=== PATIENT | female | born 1945 | race Caucasian/White ===

== ENCOUNTER 2017-01-15 08:15 | Emergency (ER) | payer MEDICARE, BC ==
[~2017-01-15 08:15] MED LIST: ALLERCLEAR10 MG PO; ARAVA 20 MG TAB20 MG PO; ARAVA20 MG PO; CARDIZEM30 MG PO; CIMZIA400 MG/2 M INJ; CIMZIA400 MG/2 M SQ; DAILY MULTIPLE1 EAC1 PO; ECOTRIN325 MG PO; ECOTRIN81 MG PO; FOLIC ACID 1 MG1 MG PO; GLUCOPHAGE 500500 MG PO; HYDROCHLOROTHIA25 MG PO; LEXAPRO10 MG PO; LIPITOR TAB 2020 MG PO; NATURAL SENNA8.6 MG PO; NITROSTAT 0.40.4 MG SL; NORCO 10-325 T1 EACH PO; PHENERGAN 12.12.5 M1 PO; PLAVIX 75 MG TA75 MG PO; PROAIR HFA8.5 GM INH; PROTONIX40 MG PO; REQUIP5 MG PO; SYNTHROID100 MCG PO; TOPROL XL25 MG PO; VITAMIN B-1000 MCG/M IM; ZOFRAN4 MG PO
[2017-01-15 09:48] LABS: HEMOGLOBIN 12.6 gm/dl (12.3-15.3); RED BLOOD COUNT 5.52 M/UL (4.00-5.10); WHITE BLOOD COUNT 6.4 K/UL (4.5-11.0)
== END 2017-01-15 13:20 | disposition home or self-care (01) ==
LOC: ER1 08:15
PROVIDERS: Physician Assistant
DX: R11.2 Nausea with vomiting, unspecified (principal); R19.7 Diarrhea, unspecified; M48.54XA Collapsed vertebra, not elsewhere classified, thoracic region, initial encounter for fracture; I10 Essential (primary) hypertension; E11.9 Type 2 diabetes mellitus without complications; Z86.73 Personal history of transient ischemic attack (TIA), and cerebral infarction without residual deficits; E03.9 Hypothyroidism, unspecified; Z90.49 Acquired absence of other specified parts of digestive tract
CPT/HCPCS: 36415; 80053; 81001; 82150; 83690; 84484; 85025; 87086; 93005; 96361; 96374; 99284; J2550

== ENCOUNTER 2021-09-11 08:00 | Inpatient (IN) | payer MEDICARE, BC ==
[~2021-09-11] VITALS: Ht 160 cm; Wt 41.3 kg
[~2021-09-11 08:00] MED LIST changes: +ANTI-ITCH28 GM TP; +ASPIRIN325 MG PO; +CARVEDILOL12.5 MG PO; +CIMZIA SC; +COREG 12.5MG12.5 MG PO; +ESCITALOPRAM OX20 MG PO; +ESCITALOPRAM PO; +FORTEO 250250 MCG/ML SC; +FORTEO SQ; +HYDROXYZINE HCL25 MG PO; +JANUVIA100 MG PO; +KENALOG CREAM 015 GM TOP; +LANTUS100 UNIT/1 SQ; +LEVAQUIN500 MG PO; +LEVOTHYROXINE50 MCG PO; +LEVOTHYROXINE88 MCG PO; +METFORMIN HCL1000 MG PO; +NITROGLYCERIN0.4 MG SL; +PANTOPRAZOLE SO40 MG PO; +PROTONIX 40 MG40 M1 PO; +RANITIDINE HCL300 MG PO; +TYLENOL WITH C1 EACH PO; +VIT D3 PO; +VITAMIN B-121000 MCG PO
[2021-09-11 08:27] LABS: HEMOGLOBIN 10.8 gm/dl (12.3-15.3); RED BLOOD COUNT 4.28 M/UL (4.00-5.10); WHITE BLOOD COUNT 13.9 K/UL (4.5-11.0)
[2021-09-11 09:06] LABS: BUN/CREATININE RATIO 29 (0-10)
[2021-09-11] MEDS ORDERED: TYLENOL 8 HOUR650 MG PO (10:23)
[2021-09-11] MEDS ORDERED: ONDANSETRON HCL4 MG PO (10:23)
[2021-09-11] MEDS ORDERED: CETIRIZINE HCL5 MG PO (10:24)
[2021-09-11] MEDS ORDERED: GLUCAGON EMERGEN1 MG INJ (10:24)
[2021-09-11] MEDS ORDERED: JARDIANCE10 MG PO (10:24)
[2021-09-11] MEDS ORDERED: ATORVASTATIN CA20 MG PO (10:25)
[2021-09-11] MEDS ORDERED: FAMOTIDINE20 MG PO (10:25)
[2021-09-11] MEDS ORDERED: DOCUSATE SODIU100 MG PO (10:25)
[2021-09-11] MEDS ORDERED: MELATONIN3 MG PO (10:25)
[2021-09-11] MEDS ORDERED: OXYBUTYNIN CHLOR5 MG PO (10:26)
[2021-09-11] MEDS ORDERED: LIDOCAINE1 EAC1 TP (10:26)
[2021-09-11] MEDS ORDERED: LANTUS SOL100 UNIT/1 SQ (10:27)
[2021-09-11] MEDS ORDERED: NAPROXEN375 M1 PO (10:27)
[2021-09-11] MEDS ORDERED: METHOCARBAMOL500 MG PO (10:28)
[2021-09-11] MEDS ORDERED: FERROUS SULFAT325 MG PO (10:28)
[2021-09-11] MEDS ORDERED: VOLTAREN ARTHRI20 GM TOP (10:30)
[2021-09-12 02:24] LABS: HEMOGLOBIN 10.9 gm/dl (12.3-15.3); RED BLOOD COUNT 4.36 M/UL (4.00-5.10)
[2021-09-12 02:28] LABS: WHITE BLOOD COUNT 9.9 K/UL (4.5-11.0)
[2021-09-12 02:53] LABS: BUN/CREATININE RATIO 39 (0-10)
[2021-09-13 06:26] LABS: HEMOGLOBIN 12.2 gm/dl (12.3-15.3); WHITE BLOOD COUNT 8.8 K/UL (4.5-11.0)
[2021-09-13 06:32] LABS: RED BLOOD COUNT 4.85 M/UL (4.00-5.10)
[2021-09-13 06:53] LABS: BUN/CREATININE RATIO 43 (0-10)
[2021-09-13] MEDS ORDERED: FUROSEMIDE20 MG PO (10:26)
[2021-09-13] MEDS ORDERED: METOPROLOL SUCC25 MG PO (10:26)
[2021-09-13] MEDS ORDERED: LISINOPRIL2.5 MG PO (10:32)
== END 2021-09-13 13:29 | disposition home or self-care (01) | DRG 280 ==
LOC: ER1 08:00 → CDU 09:40 → PROG CARE 09:40
PROVIDERS: Emergency Medicine; Physician Assistant; ADMIT Internal Medicine
PROC: B24BZZZ Ultrasonography of Heart with Aorta (ICD-10-PCS; principal; 2021-09-12)
DX: I11.0 Hypertensive heart disease with heart failure (principal); J96.01 Acute respiratory failure with hypoxia; I21.4 Non-ST elevation (NSTEMI) myocardial infarction; Z66 Do not resuscitate; Z20.822 Contact with and (suspected) exposure to COVID-19; I50.43 Acute on chronic combined systolic (congestive) and diastolic (congestive) heart failure; E43 Unspecified severe protein-calorie malnutrition; J44.1 Chronic obstructive pulmonary disease with (acute) exacerbation; Z68.1 Body mass index [BMI] 19.9 or less, adult; E78.5 Hyperlipidemia, unspecified; F03.90 Unspecified dementia, unspecified severity, without behavioral disturbance, psychotic disturbance, mood disturbance, and anxiety; D64.9 Anemia, unspecified; G89.29 Other chronic pain; E11.65 Type 2 diabetes mellitus with hyperglycemia; E27.9 Disorder of adrenal gland, unspecified; I08.1 Rheumatic disorders of both mitral and tricuspid valves; I42.9 Cardiomyopathy, unspecified; M54.9 Dorsalgia, unspecified; E03.9 Hypothyroidism, unspecified; H91.93 Unspecified hearing loss, bilateral; K56.41 Fecal impaction; Z86.73 Personal history of transient ischemic attack (TIA), and cerebral infarction without residual deficits; Z79.01 Long term (current) use of anticoagulants; Z79.82 Long term (current) use of aspirin; Z90.710 Acquired absence of both cervix and uterus; Z90.49 Acquired absence of other specified parts of digestive tract; Z87.891 Personal history of nicotine dependence; Z81.1 Family history of alcohol abuse and dependence; Z79.4 Long term (current) use of insulin
CPT/HCPCS: ECHO; 0240U; 36415; 36600; 71045; 80053; 81001; 82550; 82553; 82803; 82962; 83036; 83605; 83735; 83874; 83880; 84484; 85025; 85379; 85610; 85730; 87040; 93005; 93306; 94640; 94664; 94760; 96374; 96375; 99285; J0696; J1940; J2930; Q9967